=== PATIENT | male | born 1950 | race Caucasian/White ===

== ENCOUNTER 2016-09-15 07:32 | Emergency (ER) | payer MEDICARE, OTHER ==
--- NOTE | 2016-09-15 07:50 | ER Document Report ---
ED General - General Mode of Arrival: Medic Information source: Patient, Emergency Med Personnel Cannot obtain history due to: Altered mental status TRAVEL OUTSIDE OF THE [place] IN LAST 30 DAYS: No - HPI Onset: Other Severity: Severe <TANGELA TELLO - Last Filed: 09/15/16 15:55> <ERNA MCINTYRE - Last Filed: 09/17/16 11:24> - General Stated Complaint: DIFFICULTY BREATHING Time Seen by Provider: 09/15/16 07:35 Notes: Patient is a 66-year-old male with a medical history significant for coronary artery disease with previous CABG who presents to the emergency department today in severe respiratory distress. EMS reports on arrival the patient's room air oxygen saturation was 77% with an axillary temperature of 102.7. EMS states the patient and denied any chest pain at that time. Upon arrival here patient does complain of chest pain intermittently. Onset of shortness of breath and chest pain is questionable due to the patient's altered mental status. has now arrived with further history. reports that the patient had a fever yesterday of 101 F with no appetite. states that the patient woke up this morning at 0400 complaining of severe nausea, frequent belching, but no vomiting. states that patient has not had a cough. states the patient did not have chest pain to her knowledge until just prior to EMS arrival. states the ambulance was called secondary to the patient's temperature rising to 104 F this morning. (TANGELA TELLO) - Related Data Allergies/Adverse Reactions: glipizide [Glipizide] Allergy (Verified 03/04/12 08:36) metformin [Metformin] Allergy (Verified 03/04/12 08:36) propranolol [Propranolol] Allergy (Verified 06/18/15 07:53) Past Medical History - General Information source: Emergency Med Personnel, [facility] Records Cannot obtain history due to: Altered mental status - Social History Smoking Status: Unknown if Ever Smoked Frequency of alcohol use: None Drug Abuse: None Lives with: Spouse/Significant other Family History: Reviewed & Not Pertinent - Past Medical History Cardiac Medical History: Reports: Hx Coronary Artery Disease, Hx Hypercholesterolemia, Hx Hypertension Endocrine Medical History: Reports: Other - IDDM Renal/ Medical History: Reports: Hx Kidney Stones Past Surgical History: Reports: Hx Cardiac Surgery - CABGx3, Hx Nose Surgery, Hx Orthopedic Surgery - Immunizations Hx Diphtheria, Pertussis, Tetanus Vaccination: No - unknown <TANGELA TELLO - Last Filed: 09/15/16 15:55> Review of Systems - Review of Systems -: Yes ROS unobtainable due to patient's medical condition <TANGELA TELLO - Last Filed: 09/15/16 15:55> Physical Exam - General In distress: Severe - HEENT Head: Normocephalic, Atraumatic Eyes: Normal Conjunctiva: Normal Extraocular movements intact: Yes - Respiratory Respiratory status: Respiratory distress - severe, Tripod position Chest status: Nontender - Cardiovascular Rhythm: Regular Heart sounds: Normal auscultation Murmur: No - Abdominal Inspection: Obese Tenderness: Nontender - Extremities General upper extremity: Normal inspection, Normal ROM General lower extremity: Normal inspection, Normal ROM - Neurological Cognition: Confused - Psychological Associated symptoms: Normal affect, Normal mood - Skin Skin Temperature: Warm Skin Moisture: Diaphoretic Skin Color: Normal <TANGELA TELLO - Last Filed: 09/15/16 15:55> Course - Laboratory Result Diagrams: 09/15/16 07:40 09/15/16 07:40 <TANGELA TELLO - Last Filed: 09/15/16 15:55> - Laboratory Result Diagrams: 09/15/16 07:40 09/15/16 07:40 <ERNA MCINTYRE - Last Filed: 09/17/16 11:24> - Re-evaluation Re-evalutation: 09/15/16 15:56 (TANGELA TELLO) 09/15/16 08:39 Presents to the emergency department via EMS with a chief complaint of severe respiratory distress. EMS states that on arrival he was 77% on room air and was placed on CPAP after he did not tolerate 15 L. Later I had the benefit of the lifetime unit yesterday he was very nauseated so did develop a little bit of a fever. States that he had no headache blurred vision double vision chest pain or shortness of breath until this morning before she called EMS he was very short of breath and complained of some discomfort in his chest. He has a history of high blood pressure diabetes open heart surgery. He was unable to tell me initially who his studio sales associate was or where the open heart surgery was done. On ED arrival he was in severe respiratory distress tripoding and diaphoretic he answered yes to chest discomfort. Stat EKG was obtained which showed diffuse ischemia right-sided EKG concerning for elevation. These EKGs were faxed to by cardiology Dr. Wu. Dr. Wu called me back with the EKGs in front of him and asked if I had given lytics yet. I responded I have not yet given antiemetics. I asked him if he wanted me to knowing that he had EKG is in his hand and he stated if you think that that it is inferior to go ahead and get the [place] which I did. Patient arrived initially with blood pressure 151/71. He was no need to be a difficult airway morbidly obese but expect Rafa pattern unable to open his mouth significantly. Therefore I sedated him but did not paralyze him and was able to ventilate him without any difficulty to 99% sat. I took a look with the glide scope could visualize the cords but even with the bougie he was feeling anterior. At this point he backed off he had an oral airway nasal trumpet and evaluated him until anesthesia came in. He never became hypoxic. At this point given the fact that the studio sales associate had reviewed that recommended been extremely throughout protocol after talking with the there is no major contraindications to this. He had blood pressure rise into the 200 range during the difficult stage of bagging with sedation and paralysis but initially his blood pressure was normal and his blood pressure now after he is sedated and intubated is back down to normal. He was given nitro rectal aspirin in addition to that she states that he had a fever chest x-ray showed pleural effusion went ahead and gave him 2 g of Rocephin and 500 IV Zithromax as well as a rectal suppository for his fever. Dr. Wu called back again and patient is going to be transferred to the rating specialist. I spoke with the rating specialist who agreed to accept the transfer of the patient spoke with the . And helicopter transport is on their way. Patient called at [phone] anesthesia arrived at [phone] Wu was contacted at [phone]. At 830 I spoke with the accepting physician completed the entire form and ambulating helicopter transport. 09/15/16 09:07 Patient was febrile had a lactic acid of 7 and a white count of 1. Treated with broad-spectrum antibiotics blood cultures urine cultures for suspected early sepsis. Chest x-ray did not show pneumonia. And we notified the transplant team of this as well. (ERNA MCINTYRE) - Vital Signs Vital signs: Temp Pulse Resp BP Pulse Ox 104.1 F H 34 H 126/64 H 100 09/15/16 08:50 09/15/16 08:51 09/15/16 08:51 09/15/16 09:00 - Laboratory Laboratory results interpreted by me: 09/15/16 09/15/16 09/15/16 07:40 07:40 07:40 WBC 1.0 L* RDW 17.4 H Plt Count 123 L Seg Neuts % (Manual) 32 L Band Neutrophils % 2 L Lymphocytes % (Manual) 60 H Monocytes % (Manual) 2 L Abs Neuts (Manual) 0.3 L Abs Monocytes (Manual) 0.0 L PT 17.9 H Carbon Dioxide 19 L BUN 22 H Creatinine 1.26 H Est GFR (Non-Af Amer) 57 L Glucose 198 H Lactic Acid Total Bilirubin 4.4 H Direct Bilirubin 1.4 H AST 66 H Creatine Kinase 341 H Urine Protein Urine Ketones Urine Blood Ur Leukocyte Esterase Urine Ascorbic Acid 09/15/16 09/15/16 07:40 08:20 WBC RDW Plt Count Seg Neuts % (Manual) Band Neutrophils % Lymphocytes % (Manual) Monocytes % (Manual) Abs Neuts (Manual) Abs Monocytes (Manual) PT Carbon Dioxide BUN Creatinine Est GFR (Non-Af Amer) Glucose Lactic Acid 7.0 H Total Bilirubin Direct Bilirubin AST Creatine Kinase Urine Protein 100 H Urine Ketones TRACE H Urine Blood SMALL H Ur Leukocyte Esterase LARGE H Urine Ascorbic Acid 40 H - EKG Interpretation by Me Additional EKG results interpreted by me: 09/15/16 08:39 EKG showed sinus tachycardia 139 bpm with severe diffuse ischemia. Right-sided EKG performed lateral infarct concerns for elevation. (ERNA MCINTYRE) Procedures - Intubation Orotracheal Airway evaluation: Large tongue, Neck immobility, Obese Mallampati Classification: Class 4 Intubation method: Orotracheal Blade type: Charlee Equipment used: Glidescope, Bougie ETT size: 7.5 Breath Sounds after Intubation: Equal - i sedated with versed and etomidate visualized cords but to anterior to pass bougie. oral airway, nasal trumpet and bagged with no 02 sat < 95% until anesthesia arrived paralyzed and intubated with bougie <ERNA MCINTYRE - Last Filed: 09/17/16 11:24> Critical Care Note - Critical Care Note Total time excluding time spent on procedures (mins): 60 <ERNA MCINTYRE - Last Filed: 09/17/16 11:24> Discharge <TANGELA TELLO - Last Filed: 09/15/16 15:55> <ERNA MCINTYRE - Last Filed: 09/17/16 11:24> - Discharge Clinical Impression: Acute respiratory failure, Unstable angina, pleural effusion, sepsis Condition: Stable Disposition: [facility] Scribe Attestation: 09/15/16 08:44 I personally performed the services described in the documentation, reviewed and edited the documentation which was dictated to my scribe in my presence, and it accurately records my words and actions. (ERNA MCINTYRE) Scribe Documentation - Scribe Written by Scrjaceke:: Aurelia Magaña, 09/15/2016 0830 acting as scribe for :: Vel <TANGELA TELLO - Last Filed: 09/15/16 15:55>
[2016-09-15] MEDS ORDERED: ETOMIDATE INJ/PF 20 MG/10 ML SDV IV ONE ×3 (07:54→12:29)
--- NOTE | 2016-09-15 08:01 | RADIOLOGY REPORT (SQ) ---
EXAM DESCRIPTION: CHEST SINGLE VIEW COMPLETED DATE/TIME: 09/15/2016 7:51 am REASON FOR STUDY: cp COMPARISON: 06/20/2015. EXAM PARAMETERS: NUMBER OF VIEWS: One view. TECHNIQUE: Single frontal radiographic view of the chest acquired. RADIATION DOSE: NA LIMITATIONS: None. FINDINGS: LUNGS AND PLEURA: Moderate lung volumes, small left basilar effusion -opacity, and mild in terstitial markings. MEDIASTINUM AND HILAR STRUCTURES: No masses. Contour normal. HEART AND VASCULAR STRUCTURES: Moderate cardiac silhouette enlargement. BONES: No acute findings. HARDWARE: Median sternotomy. OTHER: No other significant finding. IMPRESSION: Small left basilar layered effusion/opacity. Mild interstitial markings. Less severe a ppearance compared with prior exam from May 2015. TECHNICAL DOCUMENTATION: JOB ID: [id number]
[2016-09-15] MEDS ORDERED: NITROGLYCERIN/D5W 50 MG/250 ML RTUINJ IV ONE (08:09)
[2016-09-15] MEDS ORDERED: PROPOFOL 100 ML IV ONE (08:20)
[2016-09-15 08:37] LABS: VENOUS BLOOD BASE EXCESS -4.7 mmol/L; VENOUS BLOOD HCO3 20.3 mmol/L (20-32); VENOUS BLOOD PCO2 37.5 mmHg (35-63); VENOUS BLOOD PH 7.35 (7.30-7.42)
[2016-09-15 08:38] LABS: PROTHROMBIN TIME 17.9 SEC (11.4-15.4)
[2016-09-15] MEDS ORDERED: AZITHROMYCIN INJ 500 MG VIAL IV ONE (08:38)
[2016-09-15] MEDS ORDERED: CEFTRIAXONE 2 GM/D5W RTU 2 GM/50 ML RTUPB IV ONE (08:38)
[2016-09-15] MEDS ORDERED: ACETAMINOPHEN 650 MG SUPP.RECT PR ONE ×2 (08:38→15:05)
--- NOTE | 2016-09-15 08:39 | RADIOLOGY REPORT (SQ) ---
EXAM DESCRIPTION: CHEST SINGLE VIEW COMPLETED DATE/TIME: 09/15/2016 8:29 am REASON FOR STUDY: er 3 post intubation COMPARISON: 09/15/2016 EXAM PARAMETERS: NUMBER OF VIEWS: One view TECHNIQUE: Single frontal radiograph of the chest. RADIATION DOSE: N/A LIMITATIONS: None. FINDINGS: TEMPORARY SUPPORT DEVICES:ETT in expected location. NG tube courses below the yevgeniy-diaphr agm in to the stomach. LUNGS AND PLEURA: No opacities. No effusions. No masses. No pneumothorax. MEDIASTINUM AND HILAR STRUCTURES: No masses. Contour normal. HEART AND VASCULAR STRUCTURES: Heart normal in size. normal vascularity. Status post CABG. BONES: Sternal wires. OTHER: No other significant finding. IMPRESSION: NO ACUTE RADIOGRAPHIC FINDING IN THE CHEST. SUPPORT DEVICE(S) IN EXPECTED LOCATIONS. TECHNICAL DOCUMENTATION: JOB ID: [id number] [employer]- All Rights Reserved
[2016-09-15 08:41] LABS: HEMATOCRIT 42.2 % (37.9-51.0); HEMOGLOBIN 13.7 g/dL (13.5-17.0); HGB HCT DIFFERENCE -1.1; MEAN CORPUSCULAR HEMOGLOBIN 27.3 pg (27.0-33.4); MEAN CORPUSCULAR HGB CONC 32.5 g/dL (32.0-36.0); MEAN CORPUSCULAR VOLUME 84 fl (80-97); RED BLOOD COUNT 5.03 10^6/uL (4.35-5.55); RED CELL DISTRIBUTION WIDTH 17.4 % (11.5-14.0)
[2016-09-15 08:46] LABS: ALANINE AMINOTRANSFERASE 43 U/L (21-72); ALBUMIN 3.6 g/dL (3.5-5.0); ALKALINE PHOSPHATASE 101 U/L (38-126); ANION GAP 18 (5-19); ASPARTATE AMINO TRANSFERASE 66 U/L (17-59); BILIRUBIN,DIRECT 1.4 mg/dL (0.0-0.4); BILIRUBIN,TOTAL 4.4 mg/dL (0.2-1.3); BLOOD UREA NITROGEN 22 mg/dL (7-20); CALCIUM 8.7 mg/dL (8.4-10.2); CARBON DIOXIDE 19 mmol/L (22-30); CHLORIDE 102 mmol/L (98-107); CREATINE KINASE 341 U/L (55-170); CREATININE RESULT 1.26 mg/dL (0.52-1.25); GLUCOSE 198 mg/dL (75-110); SODIUM 139.3 mmol/L (137-145); TOTAL PROTEIN 7.5 g/dL (6.3-8.2)
[2016-09-15 09:02] LABS: BAND NEUTROPHILS % (MANUAL) 2 % (3-5); BASOPHILS % (MANUAL) 0 % (0-2); EOSINOPHILS % (MANUAL) 4 % (0-6); LYMPHOCYTES % (MANUAL) 60 % (13-45); NUCLEATED RED BLOOD CELLS 2 /100 WBC (0); TOTAL CELLS COUNTED 50
[2016-09-15 09:03] LABS: ANISOCYTOSIS 1+; HYPOCHROMASIA SLIGHT; POLYCHROMASIA SLIGHT
[2016-09-15 09:04] LABS: PLATELET CLUMPS PRESENT
[2016-09-15] MEDS ORDERED: ENOXAPARIN SODIUM INJ 30 MG/0.3 ML DISP.SYRIN SUBCUT ONE (09:08)
[2016-09-15] MEDS ORDERED: ENOXAPARIN SODIUM INJ 80 MG/0.8 ML DISP.SYRIN SUBCUT SCH (09:10)
[2016-09-15 09:31] LABS: APPEARANCE,URINE CLOUDY; BILIRUBIN,URINE NEGATIVE (NEGATIVE); GLUCOSE, URINE NEGATIVE (NEGATIVE); KETONES,URINE TRACE mg/dL (NEGATIVE); LEUKOCYTE ESTERASE,URINE LARGE (NEGATIVE); NITRITE,URINE NEGATIVE (NEGATIVE); PROTEIN,URINE 100 mg/dL (NEGATIVE); URINE SPECIFIC GRAVITY 1.014; UROBILINOGEN,URINE NEGATIVE mg/dL (<2.0)
[2016-09-15 09:47] LABS: WBC,URINE 50-100 /HPF
[2016-09-15 09:48] LABS: BACTERIA,URINE 4+ /HPF
[2016-09-15 10:09] VITALS: BP 126/64
[2016-09-15] MEDS ORDERED: ASPIRIN 300 MG SUPP, RECTAL PR ONE (12:30)
[2016-09-15] MEDS ORDERED: MIDAZOLAM 2 MG/2 ML INJ IV ONE ×2 (12:30)
[2016-09-15] MEDS ORDERED: TENECTEPLASE INJ 50 MG KIT IV ONE ×2 (12:31→16:40)
[2016-09-15] MEDS ORDERED: PROPOFOL 100 ML IV PRN (12:31)
[2016-09-15] MEDS ORDERED: NITROGLYCERIN/D5W 250 ML IV PRN (12:31)
[2016-09-15] MEDS ORDERED: SUCCINYLCHOLINE CHLORIDE INJ 200 MG/10 ML VIAL IV ONE (15:05)
[2016-09-15] MEDS ORDERED: CEFTRIAXONE INJ 1000 MG VIAL IV ONE (15:05)
[2016-09-15] MEDS ORDERED: ENOXAPARIN SODIUM INJ 30 MG/0.3 ML DISP.SYRIN ONE (16:40)
[2016-09-15] MEDS ORDERED: SUCCINYLCHOLINE CHLORIDE INJ 200 MG/10 ML VIAL ONE (16:40)
--- NOTE | 2016-09-15 17:34 | EKG REPORT ---
SEVERITY:- ABNORMAL ECG - SINUS TACHYCARDIA PROBABLE LEFT ATRIAL ABNORMALITY LEFT POSTERIOR FASCICULAR BLOCK LATERAL INFARCT, AGE INDETERMINATE ABNRM R PROG, CONSIDER ASMI OR LEAD PLACEMENT REPOL ABNRM SUGGESTS ISCHEMIA, INFERIOR LEADS : Confirmed by: Darleen Wells 15-Sep-2016 17:33:50
--- NOTE | 2016-09-15 17:34 | EKG REPORT ---
SEVERITY:- ABNORMAL ECG - SINUS TACHYCARDIA PROBABLE LEFT ATRIAL ABNORMALITY NONSPECIFIC INTRAVENTRICULAR CONDUCTION DELAY ST DEPRESSION, CONSIDER ISCHEMIA, DIFFUSE LDS : Confirmed by: Darleen Wells 15-Sep-2016 17:34:02
--- NOTE | 2016-09-15 17:34 | EKG REPORT ---
SEVERITY:- ABNORMAL ECG - SINUS TACHYCARDIA PROBABLE LEFT ATRIAL ABNORMALITY REPOL ABNRM SUGGESTS ISCHEMIA, DIFFUSE LEADS : Confirmed by: Darleen Wells 15-Sep-2016 17:33:17
--- NOTE | 2016-09-15 17:34 | EKG REPORT ---
SEVERITY:- ABNORMAL ECG - SINUS TACHYCARDIA LEFT ATRIAL ABNORMALITY RIGHT AXIS DEVIATION REPOL ABNRM SUGGESTS ISCHEMIA, DIFFUSE LEADS : Confirmed by: Darleen Wells 15-Sep-2016 17:33:26
[2016-09-17 17:09] LABS: PATH REVIEW PATHOLOGIST REVIEWED
== END 2016-09-15 09:20 | disposition short-term general hospital (02) ==
LOC: ER 07:32
PROC: 0BH17EZ Insertion of Endotracheal Airway into Trachea, Via Natural or Artificial Opening (ICD-10-PCS; principal; 2016-09-15)
DX: J96.00 Acute respiratory failure, unspecified whether with hypoxia or hypercapnia (principal); I20.0 Unstable angina; J90 Pleural effusion, not elsewhere classified; A41.9 Sepsis, unspecified organism; R06.02 Shortness of breath; I25.10 Atherosclerotic heart disease of native coronary artery without angina pectoris; Z95.1 Presence of aortocoronary bypass graft; R50.9 Fever, unspecified
CPT/HCPCS: 31500; 93005; 99291; 96372; 96375; 96365; 96368; 36415; 87040; 87086; 82553; 82550; 85025; 85610; 87077; 87088; 80053; 81001; 87186; 82803; 83605; 71010; 93010; J3101; J2250; J3490 ×3; J2704; J0330; J0696; J1650 ×2